=== PATIENT | male | born 1980 | race Caucasian/White ===

== ENCOUNTER 2024-05-16 16:50 | Emergency (ER) | payer OTHER ==
[~2024-05-16] VITALS: Ht 177.8 cm; Wt 68.0 kg
[2024-05-16 18:42] LABS: BASOPHILS ABSOLUTE AUTO 0.06 K/mm3 (0.00-0.23); BASOPHILS PERCENT AUTO 1 % (0-2); EOSINOPHILS ABSOLUTE AUTO 0.13 K/mm3 (0.00-0.68); EOSINOPHILS PERCENT AUTO 1 % (0-6); Hematocrit 40.6 % (37.0-53.0); Hemoglobin 13.2 g/dL (13.5-17.5); IMMATURE GRAN ABSOLUTE AUTO 0.08 K/mm3 (0.00-0.10); IMMATURE GRAN PERCENT AUTO 1 % (0-1); LYMPHOCYTES ABSOLUTE AUTO 1.72 K/mm3 (0.84-5.20); LYMPHOCYTES PERCENT AUTO 19 % (21-46); MONOCYTES ABSOLUTE AUTO 0.47 K/mm3 (0.16-1.47); MONOCYTES PERCENT AUTO 5 % (4-13); Mean Corpuscular HGB 30.3 pg (26.0-34.0); Mean Corpuscular HGB Conc 32.5 g/dL (31.5-36.5); Mean Corpuscular Volume 93 fL (80-100); Mean Platelet Volume 10.3 fL (9.1-12.4); NEUTROPHILS ABSOLUTE AUTO 6.55 K/mm3 (1.96-9.15); NEUTROPHILS PERCENT AUTO 73 % (41-73); Platelet Count 404 K/mm3 (150-400); RDW Coefficient Variation 13.2 % (11.7-14.2); RDW Standard Deviation 45.2 fL (35.1-46.3); Red Blood Cell Count 4.36 M/mm3 (4.30-5.90); White Blood Cell Count 9.01 K/mm3 (4.00-11.30)
[2024-05-16 18:54] LABS: Albumin, Blood 3.1 g/dL (3.4-5.0); Albumin/Globulin Ratio 0.7 (0.8-1.8); Bilirubin, Total 0.3 mg/dL (0.1-1.0); Calcium, Blood 9.4 mg/dL (8.5-10.1); Creatinine, Blood 0.89 mg/dL (0.60-1.20); Globulin, Blood 4.7 g/dL (2.2-4.0); Potassium, Blood 4.8 mmol/L (3.5-5.5); Total Protein, Blood 7.8 g/dL (6.4-8.2)
== END 2024-05-16 21:34 | disposition left against medical advice (07) ==
LOC: ER 16:50
PROVIDERS: Student in an Organized Health Care Education/Training Program
DX: R07.9 Chest pain, unspecified (principal); Z53.21 Procedure and treatment not carried out due to patient leaving prior to being seen by health care provider
CPT/HCPCS: 71046; 80053; 83690; 84484; 85025; 93005; 93010; 99282-25

== ENCOUNTER 2025-04-15 04:56 | Emergency (ER) | payer OTHER ==
[~2025-04-15] VITALS: Ht 177.8 cm; Wt 72.6 kg
[2025-04-15] MEDS ORDERED: Ketorolac Tromethamine 30mg Vial IM ONE (06:25)
[2025-04-15] MEDS ORDERED: AMOCLA875 PO (08:41)
== END 2025-04-15 09:35 | disposition home or self-care (01) ==
LOC: ER 04:56
DX: S61.452A Open bite of left hand, initial encounter (principal); S81.051A Open bite, right knee, initial encounter; S81.852A Open bite, left lower leg, initial encounter; W54.0XXA Bitten by dog, initial encounter
CPT/HCPCS: 12002; 73130; 73562-RT; 73590; 90471; 90715; 93005; 93010; 96372-59; 99283-25; A9270; J1885